=== PATIENT | male | born 1995 | race Caucasian/White ===

== ENCOUNTER 2020-08-26 13:31 | Emergency (ER) | payer OTHER, SELFPAY ==
[2020-08-26 13:42] VITALS: BP 137/88; PULSE 77; RESP 16; TEMP 36.8; O2SAT 99; BMI 30.5
--- NOTE | 2020-08-26 14:16 | DI.RAD.S_ITS ---
PROCEDURE: XR ABDOMEN MIN 2V INDICATIONS: possible FB TECHNIQUE: 2 views of the abdomen were acquired. COMPARISON: None. FINDINGS: Surgical changes and devices: 3 mm calcific versus metallic radiodensity projects over the left mid abdomen.. Bowel: No pneumoperitoneum. The bowel gas pattern is normal. Soft tissues: No masses; visualized solid organ contours appear normal in size. No suspicious abdominal calcifications. Bones: No suspicious bony abnormalities. IMPRESSION: 1. Calcific versus metallic density projecting over the left mid abdomen. Dictated by: Jake Braun M.D. on 08/26/2020 at 14:37 Approved by: Jake Braun M.D. on 08/26/2020 at 14:38
--- NOTE | 2020-08-26 14:45 | DI.RAD.S_ITS ---
PROCEDURE: XR ABDOMEN 1V INDICATIONS: FB TECHNIQUE: One lateral view of the abdomen acquired. COMPARISON: [facility], , XR ABDOMEN MIN 2V, 08/26/2020, 14:16. FINDINGS: Surgical changes and devices: Metallic/calcific foreign body within the soft tissues of the left anterior abdomen. Bowel: Bowel gas pattern is normal. Soft tissues: No suspicious abdominal calcifications. Visualized solid organ contours appear normal in size. Bones: No suspicious bony lesions. IMPRESSION: Foreign body within the soft tissues of the left anterior abdomen. Dictated by: Jake Braun M.D. on 08/26/2020 at 14:58 Approved by: Jake Braun M.D. on 08/26/2020 at 14:59
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
== END 2020-08-26 15:33 | disposition home or self-care (01) ==
PROVIDERS: Emergency Provider Emergency Medicine
DX: S30.851A Superficial foreign body of abdominal wall, initial encounter (principal); W20.8XXA Other cause of strike by thrown, projected or falling object, initial encounter
CPT/HCPCS: 74018; 74019; 99281; 99283